=== PATIENT | male | born 1975 | race Asian ===

== ENCOUNTER 2019-02-23 01:02 | Emergency (ER) | payer SELFPAY ==
[~2019-02-23] VITALS: Ht 170.2 cm; Wt 58.0 kg
[2019-02-23 02:24] LABS: BASOPHILS % 0.4 % (0.0-2.0); EOSINOPHILS % 0.1 % (0.0-5.0); HEMATOCRIT. 42.6 % (42.0-52.0); HEMOGLOBIN. 14.6 g/dL (14.0-18.0); LYMPHOCYTES % 12.2 % (20.0-50.0); MEAN CORPUSCULAR HEMOGLOBIN 29.9 pg (28.0-32.0); MEAN CORPUSCULAR VOLUME 86.9 fL (80.0-94.0); MEAN PLATELET VOLUME 8.1 fl (7.4-10.4); MONOCYTES % 6.3 % (2.0-8.0); PLATELET 189 x1000/uL (130-400); RED CELL DISTRIBUTION WIDTH 14.2 % (11.6-14.6)
[2019-02-23 02:30] LABS: CHLORIDE 100 mEq/L (98-107)
[2019-02-23] MEDS ORDERED: LORAZEPAM 0.5MG TABLET PO ONE (02:45)
[2019-02-23 02:53] VITALS: BP 124/87
== END 2019-02-23 06:24 | disposition home or self-care (01) ==
LOC: ER 01:02
DX: E16.2 Hypoglycemia, unspecified (principal); E86.0 Dehydration; F41.8 Other specified anxiety disorders
CPT/HCPCS: 36415; 93005; 99284